=== PATIENT | male | born 1975 | race Caucasian/White ===

== ENCOUNTER 2023-12-21 14:08 | Inpatient (IN) | payer BC ==
[~2023-12-21] VITALS: Ht 167.6 cm; Wt 92.7 kg
[2023-12-21 15:49] LABS: BASO # 0.1 10^3/uL (0.0-0.2); BASO % 0.7 % (0.0-1.0); EOS % 0.2 % (0.0-3.0); HEMATOCRIT 41.8 % (42.0-52.0); LYMPH # 1.2 10^3/uL (1.5-5.0); LYMPH % 12.2 % (24.0-44.0); MEAN CORPUSCULAR HEMOGLOBIN 31.5 pg (27.0-33.0); MEAN CORPUSCULAR HGB CONC 35.9 g/dl (32.0-36.5); MEAN CORPUSCULAR VOLUME 87.8 fl (80.0-96.0); MONO # 0.6 10^3/uL (0.0-0.8); MONO % 5.8 % (2.0-8.0); NEUTROPHILS # 8.1 10^3/uL (1.5-8.5); NEUTROPHILS % 80.6 % (36.0-66.0); PLATELET COUNT, AUTOMATED 192 10^3/uL (150-450); RED BLOOD COUNT 4.76 10^6/uL (4.30-6.10); WHITE BLOOD COUNT 10.1 10^3/uL (4.0-10.0)
[2023-12-21] MEDS: LORazepam 2 MG/ML 1ML VIAL IV STA (15:51)
[2023-12-21] MEDS: NS 1,000 ML IV ONE (15:52)
[2023-12-21] MEDS: ONDANSETRON 4MG 2ML VIAL IV ONE (15:53)
[2023-12-21 15:56] LABS: VENOUS BASE EXCESS -1.6 (-2.0-2.0); VENOUS HCO3 21.7 MMOL/L (23.0-27.0); VENOUS O2 SATURATION 93.3 % (60.0-80.0); VENOUS PARTIAL PRESSURE CO2 33.2 mmHg (38.0-50.0); VENOUS PARTIAL PRESSURE O2 65.1 mmHg (30.0-50.0); VENOUS PH 7.434 UNITS (7.330-7.430); VENOUS STANDARD HCO3 23.1 MMOL/L; VENOUS TOTAL CO2 22.8 MMOL/L (24.0-28.0)
[2023-12-21 16:15] LABS: LIPASE 119 U/L (12-53)
[2023-12-21 16:16] LABS: ETHYL ALCOHOL (ETHANOL) 0.007 % (0.000-0.010)
[2023-12-21 16:16] LABS: INR 1.04; PROTHROMBIN TIME 13.3 SECONDS (12.5-14.5)
[2023-12-21 16:18] LABS: ALBUMIN 4.2 G/DL (3.2-5.2); ALKALINE PHOSPHATASE 109 U/L (46-116); ALT/SGPT 163 U/L (7.0-40); AST/SGOT 163 U/L (<34); BILIRUBIN,DIRECT 0.2 MG/DL (<0.4); BILIRUBIN,TOTAL 0.9 MG/DL (0.3-1.2); BLOOD UREA NITROGEN 22 MG/DL (9-23); CALCIUM LEVEL 9.7 MG/DL (8.5-10.1); CARBON DIOXIDE LEVEL 23 MMOL/L (20-31); CHLORIDE LEVEL 101 MMOL/L (98-107); CREATININE FOR GFR 0.73 MG/DL (0.70-1.30); GLOMERULAR FILTRATION RATE > 60.0 (>60); GLUCOSE, FASTING 199 MG/DL (60-100); POTASSIUM SERUM 3.8 MMOL/L (3.5-5.1); SODIUM LEVEL 139 MMOL/L (136-145)
[2023-12-21 16:19] LABS: ACETONE/KETONE 0.28 MMOL/L (0.02-0.27)
[2023-12-21] MEDS ORDERED: ISOVUE-370 76% 100ML VIAL As Ordered ONE (17:19)
[2023-12-21] MEDS: MORPHINE 4 MG/ML 1ML VIAL IV ONE (17:23)
[2023-12-21] MEDS ORDERED: AMLO1TAB25 (18:36)
[2023-12-21] MEDS ORDERED: LANTINJ4 (18:36)
[2023-12-21] MEDS ORDERED: ZOLO100T (18:36)
[2023-12-21] MEDS ORDERED: BUSP10TA79 PO (18:36)
[2023-12-21] MEDS ORDERED: PANT40TA29 (18:36)
[2023-12-21] MEDS ORDERED: INSU100I24 (18:36)
[2023-12-21] MEDS ORDERED: LISI10TA22 (18:36)
[2023-12-21] MEDS ORDERED: DEXTROSE 50% 50ML SYRINGE IV PRN (19:00)
[2023-12-21] MEDS ORDERED: GLUCOSE 4 GM CHEW PO PRN (19:00)
[2023-12-21] MEDS ORDERED: LORazepam 2 MG TAB PO PRN (19:00)
[2023-12-21] MEDS ORDERED: GLUCAGON INJ 1MG VIAL SC PRN (19:00)
[2023-12-21] MEDS ORDERED: MOM 30ML SUSPENSION UDC PO PRN (19:20)
[2023-12-21] MEDS ORDERED: PERCOCET 5MG/325MG TAB PO PRN (19:35)
[2023-12-21] MEDS: OXAZEPAM 15MG CAP PO SCH (19:41)
[2023-12-21] MEDS: FOLIC ACID 1MG TAB PO SCH (19:41)
[2023-12-21] MEDS: MULTIVITAMINS/MINERALS THERAP 1 TAB PO SCH (19:41)
[2023-12-21 20:14] LABS: MAGNESIUM LEVEL 1.5 MG/DL (1.8-2.4)
[2023-12-21] MEDS: THIAMINE 100 MG TAB PO SCH (20:22)
[2023-12-21] MEDS: DOCUSATE SODIUM 100MG CAPSULE PO SCH (20:22)
[2023-12-21 20:28] LABS: PROCALCITONIN <0.04 ng/ml
[2023-12-21 20:35] LABS: HEPATITIS B SURFACE ANTIGEN NEGATIVE (NEGATIVE)
[2023-12-21] MEDS: INSULIN LISPRO (NovoLOG) PER UNIT SC SCH (20:48)
[2023-12-21] MEDS: LR 1,000 ML IV SCH (20:52)
[2023-12-21] MEDS: PERCOCET 5MG/325MG TAB PO PRN (20:52)
[2023-12-21 20:56] LABS: HEPATITIS B CORE ANTIBODY IGM NEGATIVE (NEGATIVE); HEPATITIS C VIRUS ABY INDEX < 0.02 INDEX (<0.8)
[2023-12-21] MEDS: ONDANSETRON 4MG ORAL DISINTEGRATING TAB PO PRN (21:02)
[2023-12-21] MEDS ORDERED: LANTINJ4 SC (22:00)
[2023-12-21] MEDS ORDERED: PANT40TA29 PO (22:00)
[2023-12-21] MEDS ORDERED: ZOLO100T PO (22:00)
[2023-12-21] MEDS ORDERED: BUSP10TA PO (22:00)
[2023-12-21] MEDS ORDERED: INSUHUMDS SC (22:00)
[2023-12-21] MEDS ORDERED: GLUC3SPR NARES (22:00)
[2023-12-21] MEDS ORDERED: AMLO1TAB25 PO (22:00)
[2023-12-21] MEDS ORDERED: LISI10TA22 PO (22:00)
[2023-12-21] MEDS ORDERED: MORPHINE 2 MG/ML 1ML VIAL IV PRN (22:35)
[2023-12-21] MEDS: MAGNESIUM OXIDE 400MG TAB (MAG-OX) PO SCH (22:53)
[2023-12-21] MEDS: MORPHINE 2 MG/ML 1ML VIAL IV PRN (22:56)
[2023-12-21] MEDS: MAG SULF 1GM/100ML (MAG RUN) 1 GM in IV 1 EA IV SCH (22:57)
[2023-12-21] MEDS ORDERED: MED REC IN PROGRESS XX SCH (23:05)
[2023-12-22] VITALS (8 sets, daily range): BP systolic 157–170; BP diastolic 93–110; TEMP 97.5–98.2; O2SAT 95–97
[2023-12-22 05:30] LABS: HEMATOCRIT 37.8 % (42.0-52.0); HEMOGLOBIN 13.5 g/dl (13.5-17.5); MEAN CORPUSCULAR HEMOGLOBIN 31.5 pg (27.0-33.0); MEAN CORPUSCULAR HGB CONC 35.7 g/dl (32.0-36.5); MEAN CORPUSCULAR VOLUME 88.1 fl (80.0-96.0); PLATELET COUNT, AUTOMATED 139 10^3/uL (150-450); RED BLOOD COUNT 4.29 10^6/uL (4.30-6.10); WHITE BLOOD COUNT 8.3 10^3/uL (4.0-10.0)
[2023-12-22 05:53] LABS: PROCALCITONIN 0.05 ng/ml
[2023-12-22 05:54] LABS: ALBUMIN 3.8 G/DL (3.2-5.2); ALKALINE PHOSPHATASE 103 U/L (46-116); ALT/SGPT 126 U/L (7.0-40); AST/SGOT 110 U/L (<34); BILIRUBIN,TOTAL 1.5 MG/DL (0.3-1.2); BLOOD UREA NITROGEN 18 MG/DL (9-23); CALCIUM LEVEL 9.1 MG/DL (8.5-10.1); CARBON DIOXIDE LEVEL 28 MMOL/L (20-31); CHLORIDE LEVEL 100 MMOL/L (98-107); CREATININE FOR GFR 0.62 MG/DL (0.70-1.30); GLOMERULAR FILTRATION RATE > 60.0 (>60); GLUCOSE, FASTING 205 MG/DL (60-100); POTASSIUM SERUM 3.3 MMOL/L (3.5-5.1); SODIUM LEVEL 136 MMOL/L (136-145); TOTAL PROTEIN 7.3 G/DL (5.7-8.2)
[2023-12-22] MEDS: MAALOX 30 ML SUSP *UDC PO PRN (06:11)
[2023-12-22] MEDS: POTASSIUM CHLORIDE 10MEQ SR TABLET PO ONE (06:58)
[2023-12-22] MEDS: PANTOPRAZOLE 40MG VIAL IV ONE (07:55)
[2023-12-22] MEDS ORDERED: HOME MED LIST COMPLETE! XX SCH (09:00)
[2023-12-22] MEDS: ENOXAPARIN 40MG/0.4ML SYRINGE (J1650 PER 10MG) SC SCH (09:00)
[2023-12-22] MEDS: LEVEMIR (INSULIN DETEMIR) 1 UNITS/0.01ML SC SCH (09:00)
[2023-12-22] MEDS: INSULIN LISPRO (NovoLOG) PER UNIT SC SCH (09:47)
[2023-12-22] MEDS: HYDROMORPHONE HCL 0.5 MG/ 0.5 ML SYRINGE IV PRN ×3 (10:19→17:30)
[2023-12-22] MEDS ORDERED: LORazepam 2 MG TAB PO PRN (10:30)
[2023-12-22] MEDS: LORazepam 2 MG/ML 1ML VIAL IV PRN (10:50)
[2023-12-22 12:46] LABS: BASO % 0.5 % (0.0-1.0); HEMATOCRIT 38.5 % (42.0-52.0); HEMOGLOBIN 13.8 g/dl (13.5-17.5); LYMPH # 0.8 10^3/uL (1.5-5.0); LYMPH % 9.1 % (24.0-44.0); MEAN CORPUSCULAR HEMOGLOBIN 31.6 pg (27.0-33.0); MEAN CORPUSCULAR HGB CONC 35.8 g/dl (32.0-36.5); MEAN CORPUSCULAR VOLUME 88.1 fl (80.0-96.0); MONO # 0.5 10^3/uL (0.0-0.8); MONO % 6.2 % (2.0-8.0); NEUTROPHILS # 7.2 10^3/uL (1.5-8.5); NEUTROPHILS % 83.5 % (36.0-66.0); PLATELET COUNT, AUTOMATED 121 10^3/uL (150-450); RED BLOOD COUNT 4.37 10^6/uL (4.30-6.10); WHITE BLOOD COUNT 8.7 10^3/uL (4.0-10.0)
[2023-12-22 13:17] LABS: BLOOD UREA NITROGEN 15 MG/DL (9-23); CALCIUM LEVEL 9.4 MG/DL (8.5-10.1); CARBON DIOXIDE LEVEL 24 MMOL/L (20-31); CHLORIDE LEVEL 100 MMOL/L (98-107); CREATININE FOR GFR 0.61 MG/DL (0.70-1.30); GLOMERULAR FILTRATION RATE > 60.0 (>60); GLUCOSE, FASTING 215 MG/DL (60-100); POTASSIUM SERUM 3.7 MMOL/L (3.5-5.1); SODIUM LEVEL 135 MMOL/L (136-145)
[2023-12-22] MEDS: HYDROMORPHONE HCL 0.5 MG/ 0.5 ML SYRINGE IV ONE (15:00)
[2023-12-22] MEDS: OXAZEPAM 15MG CAP PO SCH (18:37)
[2023-12-22] MEDS: PANTOPRAZOLE 40MG VIAL IV SCH (20:32)
[2023-12-23] VITALS (10 sets, daily range): BP systolic 140–158; BP diastolic 91–103; TEMP 97.6–99.6; O2SAT 94–98
[2023-12-23 05:22] LABS: BASO % 0.2 % (0.0-1.0); EOS # 0.1 10^3/uL (0.0-0.5); EOS % 0.7 % (0.0-3.0); HEMATOCRIT 37.9 % (42.0-52.0); HEMOGLOBIN 13.5 g/dl (13.5-17.5); LYMPH # 1.2 10^3/uL (1.5-5.0); LYMPH % 13.4 % (24.0-44.0); MEAN CORPUSCULAR HEMOGLOBIN 32.1 pg (27.0-33.0); MEAN CORPUSCULAR HGB CONC 35.6 g/dl (32.0-36.5); MONO # 0.8 10^3/uL (0.0-0.8); MONO % 8.5 % (2.0-8.0); NEUTROPHILS % 76.5 % (36.0-66.0); PLATELET COUNT, AUTOMATED 117 10^3/uL (150-450); RED BLOOD COUNT 4.21 10^6/uL (4.30-6.10); WHITE BLOOD COUNT 9.2 10^3/uL (4.0-10.0)
[2023-12-23 05:43] LABS: ALBUMIN 3.6 G/DL (3.2-5.2); ALKALINE PHOSPHATASE 113 U/L (46-116); ALT/SGPT 96 U/L (7.0-40); AST/SGOT 68 U/L (<34); BILIRUBIN,DIRECT 0.9 MG/DL (<0.4); BILIRUBIN,TOTAL 1.8 MG/DL (0.3-1.2); BLOOD UREA NITROGEN 14 MG/DL (9-23); CALCIUM LEVEL 9.4 MG/DL (8.5-10.1); CARBON DIOXIDE LEVEL 26 MMOL/L (20-31); CHLORIDE LEVEL 99 MMOL/L (98-107); CREATININE FOR GFR 0.61 MG/DL (0.70-1.30); GLOMERULAR FILTRATION RATE > 60.0 (>60); GLUCOSE, FASTING 174 MG/DL (60-100); POTASSIUM SERUM 3.6 MMOL/L (3.5-5.1); SODIUM LEVEL 135 MMOL/L (136-145); TOTAL PROTEIN 7.2 G/DL (5.7-8.2)
[2023-12-23] MEDS: ACETAMINOPHEN TAB 650MG DOSE (2X325MG) PO PRN (23:40)
[2023-12-24 04:00] VITALS: BP 128/80; TEMP 98; O2SAT 95
[2023-12-24 05:44] LABS: BASO % 0.5 % (0.0-1.0); EOS # 0.2 10^3/uL (0.0-0.5); EOS % 4.4 % (0.0-3.0); HEMATOCRIT 36.7 % (42.0-52.0); HEMOGLOBIN 13.1 g/dl (13.5-17.5); LYMPH # 1.6 10^3/uL (1.5-5.0); LYMPH % 28.7 % (24.0-44.0); MEAN CORPUSCULAR HEMOGLOBIN 31.6 pg (27.0-33.0); MEAN CORPUSCULAR HGB CONC 35.7 g/dl (32.0-36.5); MEAN CORPUSCULAR VOLUME 88.4 fl (80.0-96.0); MONO # 0.5 10^3/uL (0.0-0.8); MONO % 8.7 % (2.0-8.0); NEUTROPHILS # 3.1 10^3/uL (1.5-8.5); PLATELET COUNT, AUTOMATED 119 10^3/uL (150-450); RED BLOOD COUNT 4.15 10^6/uL (4.30-6.10); WHITE BLOOD COUNT 5.5 10^3/uL (4.0-10.0)
[2023-12-24 06:14] LABS: BLOOD UREA NITROGEN 12 MG/DL (9-23); CARBON DIOXIDE LEVEL 29 MMOL/L (20-31); CHLORIDE LEVEL 100 MMOL/L (98-107); CREATININE FOR GFR 0.62 MG/DL (0.70-1.30); GLOMERULAR FILTRATION RATE > 60.0 (>60); GLUCOSE, FASTING 178 MG/DL (60-100); POTASSIUM SERUM 3.2 MMOL/L (3.5-5.1); SODIUM LEVEL 134 MMOL/L (136-145)
[2023-12-24] MEDS ORDERED: PERCOCET 5MG/325MG TAB PO PRN ×2 (06:35)
[2023-12-24] MEDS: POTASSIUM CHLORIDE 10MEQ SR TABLET PO ONE (06:45)
[2023-12-24 07:26] LABS: MAGNESIUM LEVEL 1.9 MG/DL (1.8-2.4)
[2023-12-24 07:56] VITALS: BP 129/87; TEMP 98; O2SAT 95
[2023-12-24 08:49] VITALS: BP 129/87
[2023-12-24] MEDS: PANTOPRAZOLE 40MG TAB (PROTONIX) PO SCH (08:50)
[2023-12-24] MEDS ORDERED: PROT1TAB2 PO (09:55)
[2023-12-24] MEDS ORDERED: PERCOCET PO (09:55)
[2023-12-28 01:27] LABS: ACETONE, URINE 22 mg/dL; ETHANOL, URINE None Detected; ISOPROPANOL, URINE None Detected; METHANOL, URINE None Detected
== END 2023-12-24 13:06 | disposition home or self-care (01) | DRG 775 ==
LOC: M ED 14:08 → M ED INP 19:16 → M PCU 12-22 00:26
PROVIDERS: ADMIT Family Medicine; ATTEND Internal Medicine
DX: F10.239 Alcohol dependence with withdrawal, unspecified (principal); K85.90 Acute pancreatitis without necrosis or infection, unspecified; E87.20 Acidosis, unspecified; K29.21 Alcoholic gastritis with bleeding; K86.1 Other chronic pancreatitis; E83.42 Hypomagnesemia; K70.0 Alcoholic fatty liver; E10.9 Type 1 diabetes mellitus without complications; I10 Essential (primary) hypertension; E87.6 Hypokalemia; F32.A Depression, unspecified; K21.9 Gastro-esophageal reflux disease without esophagitis; L80 Vitiligo; Z87.820 Personal history of traumatic brain injury; Z79.4 Long term (current) use of insulin; Z79.899 Other long term (current) drug therapy